=== PATIENT | female | born 1955 | race Caucasian/White ===

== ENCOUNTER 2020-05-20 15:59 | Inpatient (IN) ==
[2020-05-20] MEDS ORDERED: NS 0.9% 1000 ml BAG 1,000 ML IV ONE (17:16)
[2020-05-20] MEDS ORDERED: Levofloxacin 750 MG IVPREMIX 750 MG/150 ML BAG IVPB ONE (17:18)
[2020-05-20 18:58] LABS: ABS Eosinophils 0.1 10^3/ul (0-0.6); ABS Lymphocytes 1.3 10^3/ul (1.0-4.8); ABS Monocytes 0.9 10^3/ul (0-0.8); ABS Neutrophils 5.2 10^3/ul (1.5-7.7); Eosinophil % 0.7 %; Hematocrit 52 % (35-47); Hemoglobin 17.1 g/dL (12.0-16.0); Lymphocyte % 17.2 %; Mean Corpuscular HGB Conc 33 g/dL (31-36); Mean Corpuscular Hemoglobin 34 pg (27-31); Mean Corpuscular Volume 103 fL (80-97); Mean Platelet Volume 8.8 fL (7.4-10.4); Platelet Count 174 10^3/uL (150-450); Red Blood Count 5.02 10^6 /uL (3.70-4.87); Red Cell Distribution Width 14 % (10-15); White Blood Count 7.4 10^3/uL (3.5-10.8)
[2020-05-20 19:10] LABS: INR 1.19 (0.82-1.09)
[2020-05-20 19:13] LABS: Albumin 3.3 g/dL (3.2-5.2); Anion Gap 2 mmol/L (2-11); CO2 Carbon Dioxide 35 mmol/L (22-32); Calcium 8.7 mg/dL (8.6-10.3); Chloride 100 mmol/L (101-111); Potassium 4.4 mmol/L (3.5-5.0); Sodium 137 mmol/L (135-145)
[2020-05-20 19:19] LABS: ALT 16 U/L (7-52); AST 19 U/L (13-39); Albumin/Globulin Ratio 1.4 (1-3); Alkaline Phosphatase 59 U/L (34-104); BUN/Creatinine Ratio 34.8 (8-20); Blood Urea Nitrogen 23 mg/dL (6-24); C Reactive Protein 3.35 mg/L (<8.01); EGFR African American 108.4 (>60); EGFR Non-African American 89.6 (>60); Globulin 2.3 g/dL (2-4); Glucose 126 mg/dL (70-100); Total Protein 5.6 g/dL (6.4-8.9)
[2020-05-20 19:28] LABS: Troponin I 0.06 ng/mL (<0.03)
[2020-05-20] MEDS ORDERED: Albuterol HFA INHALER 8 gm MDI INH PRN (20:16)
[2020-05-20] MEDS ORDERED: Furosemide 40 mg/4 ml IV VIAL IV ONE (20:21)
[2020-05-20 22:26] LABS: Magnesium 1.8 mg/dL (1.9-2.7)
[2020-05-20] MEDS: Enoxaparin 40 MG/0.4 ML SYR SUBCUT SCH (22:28)
[2020-05-20] MEDS: Mometasone/Formoter 200/5 MDI INH SCH (23:55)
[2020-05-20] MEDS: SPIRIVA Respimat (tiotropium) 2.5 mcg/inh Inhaler INH SCH (23:59)
[2020-05-21 00:50] LABS: Troponin I 0.06 ng/mL (<0.03)
[2020-05-21] MEDS ORDERED: Magnesium Sulfate 2 gm BAG 2 GM/50 ML BAG IVPB ONE (01:09)
[2020-05-21 06:04] LABS: Hematocrit 50 % (35-47); Hemoglobin 16.9 g/dL (12.0-16.0); Mean Corpuscular HGB Conc 34 g/dL (31-36); Mean Corpuscular Hemoglobin 34 pg (27-31); Mean Corpuscular Volume 102 fL (80-97); Mean Platelet Volume 8.5 fL (7.4-10.4); Platelet Count 159 10^3/uL (150-450); Red Blood Count 4.92 10^6 /uL (3.70-4.87); Red Cell Distribution Width 14 % (10-15); White Blood Count 7.1 10^3/uL (3.5-10.8)
[2020-05-21 06:22] LABS: Anion Gap 4 mmol/L (2-11); BUN/Creatinine Ratio 27.9 (8-20); Blood Urea Nitrogen 19 mg/dL (6-24); CO2 Carbon Dioxide 35 mmol/L (22-32); Calcium 8.6 mg/dL (8.6-10.3); Chloride 99 mmol/L (101-111); EGFR African American 104.7 (>60); EGFR Non-African American 86.6 (>60); Glucose 97 mg/dL (70-100); Potassium 4.6 mmol/L (3.5-5.0); Sodium 138 mmol/L (135-145)
[2020-05-21 06:24] LABS: ABS Monocytes 0.7 10^3/ul (0-0.8); ABS Neutrophils 5.1 10^3/ul (1.5-7.7); Eosinophil % 0.6 %; Lymphocyte % 14.8 %
[2020-05-21 06:26] LABS: Troponin I 0.06 ng/mL (<0.03)
[2020-05-21 07:13] LABS: Vitamin B12 372 pg/mL (180-914)
[2020-05-21] MEDS ORDERED: Furosemide 40 mg/4 ml IV VIAL IV SLOW PU SCH (08:00)
[2020-05-21] MEDS: SPIRIVA Respimat (tiotropium) 2.5 mcg/inh Inhaler INH SCH (08:49)
[2020-05-21] MEDS: Mometasone/Formoter 200/5 MDI INH SCH ×2 (08:50→20:34)
[2020-05-21] MEDS ORDERED: Insulin GLARGINE 100 un/ml 10 ml VIAL SUBCUT SCH (09:00)
[2020-05-21] MEDS: Furosemide 40 mg/4 ml IV VIAL IV SLOW PU SCH (14:10)
[2020-05-21 16:55] LABS: BUN/Creatinine Ratio 23.4 (8-20); Calcium 8.9 mg/dL (8.6-10.3); EGFR African American 72.1 (>60); EGFR Non-African American 59.6 (>60); Magnesium 1.8 mg/dL (1.9-2.7); Potassium 4.2 mmol/L (3.5-5.0)
[2020-05-21] MEDS ORDERED: Potassium Chlor 20 meq TAB.ER PO ONE (17:09)
[2020-05-21] MEDS ORDERED: Magnesium Sulfate IV 1GM/100ML 1 GM/100 ML BAG IV ONE (17:10)
[2020-05-21] MEDS: Enoxaparin 40 MG/0.4 ML SYR SUBCUT SCH (20:19)
[2020-05-22 06:05] LABS: BUN/Creatinine Ratio 31.8 (8-20); Calcium 8.6 mg/dL (8.6-10.3); EGFR African American 108.4 (>60); EGFR Non-African American 89.6 (>60); Magnesium 1.9 mg/dL (1.9-2.7); Potassium 4.6 mmol/L (3.5-5.0)
[2020-05-22] MEDS: Furosemide 40 mg/4 ml IV VIAL IV SLOW PU SCH (07:53)
[2020-05-22] MEDS: SPIRIVA Respimat (tiotropium) 2.5 mcg/inh Inhaler INH SCH (09:06)
[2020-05-22] MEDS: Mometasone/Formoter 200/5 MDI INH SCH ×2 (09:06→20:24)
[2020-05-22] MEDS: Enoxaparin 40 MG/0.4 ML SYR SUBCUT SCH (20:00)
[2020-05-23 07:05] LABS: EGFR African American 139.7 (>60); EGFR Non-African American 115.4 (>60); Potassium 4.6 mmol/L (3.5-5.0)
[2020-05-23] MEDS ORDERED: Furosemide 40 mg/4 ml IV VIAL IV SLOW PU SCH (08:00)
[2020-05-23 08:11] VITALS: BP 122/68
[2020-05-23] MEDS: Mometasone/Formoter 200/5 MDI INH SCH (08:46)
[2020-05-23] MEDS: SPIRIVA Respimat (tiotropium) 2.5 mcg/inh Inhaler INH SCH (08:46)
== END 2020-05-23 16:30 | disposition home or self-care (01) | DRG 291 ==
LOC: ED 15:59 → MEDTELE 20:59
PROVIDERS: ADMIT Internal Medicine; ATTEND Internal Medicine